=== PATIENT | female | born 1975 | race Two or more races ===

== ENCOUNTER 2022-08-18 18:03 | Inpatient (IN) | payer SELFPAY ==
[~2022-08-18] VITALS: Ht 157.5 cm; Wt 67.8 kg
[2022-08-18] MEDS ORDERED: MORPHINE SULFATE 4 MG/ML SYR/VIAL IV ONE ×2 (20:00→22:30)
[2022-08-18] MEDS ORDERED: ONDANSETRON HCL 4 MG/2 ML VIAL IV ONE (20:00)
[2022-08-18] MEDS ORDERED: KETAMINE 50mg/ML 10ml Vial (500mg/10ml) IV ONE (22:00)
[2022-08-18] MEDS ORDERED: DOCUSATE SOD 100 MG CAP PO PRN (22:45)
[2022-08-18] MEDS ORDERED: SODIUM CHLORIDE 0.9% 1,000 ML IV SCH (22:45)
[2022-08-18] MEDS ORDERED: ONDANSETRON HCL 4 MG/2 ML VIAL IV PRN (22:45)
[2022-08-18] MEDS ORDERED: ACETAMINOPHEN 325 MG TAB PO PRN (22:45)
[2022-08-18] MEDS ORDERED: MORPHINE SULFATE INJ 2 MG/ml SYRG IV PRN (23:45)
[2022-08-18] MEDS ORDERED: NITROGLYCERIN 0.4 MG SL TAB SL PRN (23:45)
[2022-08-19] MEDS ORDERED: KETAMINE 50mg/ML 10ml Vial (500mg/10ml) IV ONE
[2022-08-19 03:12] LABS: Basophils # (auto) 0.1 10 ^3/uL (0-0.2); Basophils % (auto) 0.5 % (0.0-2.0); Eosinophils # (auto) 0 10 ^3/uL (0-0.8); Eosinophils % (auto) 0.1 % (0.0-7.0); Hematocrit 38.9 % (36.0-46.0); Hemoglobin 13.2 g/dL (12.2-16.2); Lymphocytes # (auto) 1.1 10 ^3/uL (0.4-5.4); Lymphocytes % (auto) 9.1 % (10.0-50.0); Mean Corpuscular Hemoglobin 31.2 pg (28.0-32.0); Mean Corpuscular Volume 91.7 fL (80.0-100.0); Monocytes # (auto) 0.6 10 ^3/uL (0-1.3); Monocytes % (auto) 5.3 % (0.0-12.0); Neutrophils # (auto) 10.1 10 ^3/uL (1.6-8.6); Red Blood Cells 4.24 10^6/uL (4.0-5.20); Red Cell Distribution Width 13.3 % (11.8-14.3); White Blood Cell 11.9 10^3/uL (4.4-10.8)
[2022-08-19 03:24] LABS: Albumin 3.8 g/dL (3.4-5.0); BUN/Creatinine Ratio 19.4; Calcium 8.6 mg/dL (8.5-10.1); Potassium 3.9 mmol/L (3.5-5.1)
[2022-08-19 03:25] LABS: INR 0.98 (0.9-1.15); Partial Thromboplastin Time 25.6 sec (24.6-33.4)
[2022-08-19 03:26] LABS: Bilirubin, Total 0.9 mg/dL (0.2-1.0); Total Protein 6.8 g/dL (6.4-8.2)
[2022-08-19] MEDS ORDERED: cefTRIAXone 1GM/50ML D5W 50 ML IV ONE (04:15)
[2022-08-19] MEDS: MORPHINE SULFATE INJ 2 MG/ml SYRG IV PRN ×2 (06:39→16:53)
[2022-08-19] MEDS: ENOXAPARIN SOD 40 MG/0.4 ML SYRINGE SC SCH (10:42)
[2022-08-19 17:00] VITALS: BP 108/62
[2022-08-19 17:46] LABS: Urine Bacteria NONE SEEN /hpf (None Seen); Urine Blood Negative /uL (Negative); Urine Mucus FEW (None Seen); Urine Specific Gravity 1.011 (1.001-1.035); Urine WBC 1 /hpf (0 - 5)
[2022-08-19] MEDS: HYDROcodone-ACET 5/325MG TAB PO PRN (21:01)
[2022-08-19] MEDS ORDERED: ALBUMIN 5% 250 ML IV ONE (21:15)
[2022-08-19 21:30] VITALS: BP 89/52
[2022-08-19 23:09] VITALS: BP 115/60
[2022-08-20 05:00] VITALS: BP 103/53
[2022-08-20 09:00] VITALS: BP_SYST 123; BP_SYST 95; BP_DIAS 54; BP_DIAS 69
[2022-08-20] MEDS ORDERED: cefTRIAXone 1GM/50ML D5W 50 ML IV SCH (09:00)
[2022-08-20] MEDS: ENOXAPARIN SOD 40 MG/0.4 ML SYRINGE SC SCH (09:21)
[2022-08-20] MEDS ORDERED: ONDANSETRON HCL 4 MG/2 ML VIAL ONE (10:57)
[2022-08-20] MEDS ORDERED: SODIUM CHLORIDE LOCK 10 ML ONE (10:57)
[2022-08-20] MEDS ORDERED: ROCURONIUM 10MG/ML 10ML VIAL IV ONE (10:57)
[2022-08-20] MEDS ORDERED: HYDROmorphone HCL 2 MG/ML VL/or syr ONE ×2 (10:57→15:45)
[2022-08-20] MEDS ORDERED: PROPOFOL 10 MG/ML 20 ML IV ONE (10:57)
[2022-08-20] MEDS ORDERED: fentaNYL CITRATE 100 MCG/2 ML VL ONE (10:57)
[2022-08-20] MEDS ORDERED: MIDAZOLAM HCL 2MG/2ML 2ml VIAL (1mg/ml) ONE (10:57)
[2022-08-20] MEDS ORDERED: ceFAZolin 1GM/50ML 100 ML IV ONE (11:40)
[2022-08-20] MEDS ORDERED: ROPIVACAINE 0.5% (5MG/ML) 20ML AMPULE IJ ONE (12:23)
[2022-08-20] MEDS ORDERED: HYDROmorphone HCL 2 MG/ML VL/or syr IV PRN (12:45)
[2022-08-20] MEDS ORDERED: fentaNYL CITRATE 100 MCG/2 ML VL IV PRN (12:45)
[2022-08-20] MEDS ORDERED: METOCLOPRAMIDE HCL 5MG/ml INJ 2ml VIAL IV PRN (12:45)
[2022-08-20] MEDS ORDERED: MORPHINE SULFATE 4 MG/ML SYR/VIAL IV PRN (12:45)
[2022-08-20] MEDS ORDERED: SUCCINYLCHOLINE CHLORIDE 20 MG/ML 10ML VIAL IV ONE (14:04)
[2022-08-20] MEDS ORDERED: DexAMETHasone SOD PHOS 10MG/1ML VIAL INJ IV ONE (14:04)
[2022-08-20] MEDS ORDERED: VANCOMYCIN HCL 1000 MG VL ONE (14:14)
[2022-08-20] MEDS ORDERED: VANCOMYCIN HCL 1000 MG VL IR ONE (14:15)
[2022-08-20] MEDS: ceFAZolin 1GM/50ML 50 ML IV SCH ×2 (14:30→22:00)
[2022-08-20] MEDS: HYDROmorphone HCL 2 MG/ML VL/or syr IV PRN ×3 (15:47→16:14)
[2022-08-20] MEDS ORDERED: ERGOCALCIFEROL 50,000 UNIT(1.25MG) CAP PO SCH (18:00)
[2022-08-20] MEDS: HYDROcodone-ACET 5/325MG TAB PO PRN (21:59)
[2022-08-20 22:00] VITALS: BP 114/69
[2022-08-21] MEDS: HYDROcodone-ACET 5/325MG TAB PO PRN ×2 (03:19→08:15)
[2022-08-21 05:00] VITALS: BP 109/51
[2022-08-21] MEDS: ceFAZolin 1GM/50ML 50 ML IV SCH (05:39)
[2022-08-21 05:41] LABS: Basophils # (auto) 0 10 ^3/uL (0-0.2); Basophils % (auto) 0.1 % (0.0-2.0); Eosinophils # (auto) 0 10 ^3/uL (0-0.8); Hematocrit 34.1 % (36.0-46.0); Hemoglobin 11.8 g/dL (12.2-16.2); Lymphocytes # (auto) 1.1 10 ^3/uL (0.4-5.4); Lymphocytes % (auto) 9.9 % (10.0-50.0); Mean Corpuscular Hemoglobin 31.4 pg (28.0-32.0); Mean Corpuscular Hgb Conc. 34.6 g/dL (32.0-36.0); Mean Corpuscular Volume 90.7 fL (80.0-100.0); Monocytes # (auto) 0.8 10 ^3/uL (0-1.3); Monocytes % (auto) 7.5 % (0.0-12.0); Neutrophils # (auto) 8.9 10 ^3/uL (1.6-8.6); Neutrophils % (auto) 82.5 % (37.0-80.0); Red Blood Cells 3.76 10^6/uL (4.0-5.20); Red Cell Distribution Width 12.9 % (11.8-14.3); White Blood Cell 10.8 10^3/uL (4.4-10.8)
[2022-08-21 06:01] LABS: BUN/Creatinine Ratio 18.8; Calcium 8.7 mg/dL (8.5-10.1); Potassium 3.9 mmol/L (3.5-5.1)
[2022-08-21] MEDS: ENOXAPARIN SOD 40 MG/0.4 ML SYRINGE SC SCH (08:47)
[2022-08-21 09:00] VITALS: BP 110/67
[2022-08-21 11:45] VITALS: BP 110/67
[2022-08-21 12:51] VITALS: BP 102/54
[2022-08-23 09:09] LABS: Hepatitis B Surface Antibody Negative (Negative)
[2022-08-23 09:39] LABS: Hepatitis A Total Antibody Positive (Negative)
[2022-08-23 11:16] LABS: Hepatitis C Antibody Negative (Negative)
== END 2022-08-21 14:05 | disposition home or self-care (01) | DRG 494 ==
LOC: EDBD 18:03 → ER 18:06 → EDBD 18:06 → OVERFLOW 23:42 → CENTRAL 08-19 16:05
PROVIDERS: ADMIT Nurse Practitioner Family; ATTEND Internal Medicine
PROC: 0QSG04Z Reposition Right Tibia with Internal Fixation Device, Open Approach (ICD-10-PCS; principal; 2022-08-21)
PROC: BQ1FZZZ Fluoroscopy of Left Lower Leg (ICD-10-PCS; 2022-08-21)
DX: S82.391A Other fracture of lower end of right tibia, initial encounter for closed fracture (principal); S82.831A Other fracture of upper and lower end of right fibula, initial encounter for closed fracture; D72.829 Elevated white blood cell count, unspecified; R73.9 Hyperglycemia, unspecified; Z20.822 Contact with and (suspected) exposure to COVID-19; E55.9 Vitamin D deficiency, unspecified; S82.301A Unspecified fracture of lower end of right tibia, initial encounter for closed fracture; W01.0XXA Fall on same level from slipping, tripping and stumbling without subsequent striking against object, initial encounter; Y93.89 Activity, other specified; Y92.89 Other specified places as the place of occurrence of the external cause; Y99.8 Other external cause status
CPT/HCPCS: 36415; 71045; 73560; 73590; 73610; 76000; 80048; 80053; 81001; 82306; 83036; 84443; 84702; 85025; 85610; 85730; 86701; 86703; 86704; 86706; 86708; 86803; 86850; 86900; 86901; 87340; 96361; 96374; 96375; 97163; 99152; G0378; J0330; J0690; J0696; J1100; J2250; J2405; J2704